=== PATIENT | female | born 1945 | race Caucasian/White ===

== ENCOUNTER → 2016-11-26 | Outpatient (CLI) | payer MEDICARE ==
[~2016-11-26] MED LIST: ACETAMINOPHEN PO; ASPIRIN81 M2 PO; ATENOLOL25 MG; ATENOLOL50 MG PO; FUROSEMIDE40 MG PO; HYDROCHLOROTHIA25 MG; IBUPROFEN800 MG; ISOSORBIDE DINI30 MG PO; LIPITOR20 MG PO; LOSARTAN POTAS100 MG PO; MIRAPEX ER1.5 MG; MULTI VITAMIN1 EACH PO; MULTI-DAY VITAM1 TAB; NEURONTIN300 MG PO; PRAVACHOL20 MG; SYNTHROID0.1 MG; SYNTHROID125 PO; TRAMADOL HCL50 M2 PO; VITAMIN D1000 UNI2 PO; VITAMIN D1000 UNIT; [UNRECOGNIZED DRUG - MIXTURE]
--- NOTE | ~2016-11-26 | BD1 ---
[facility] A Service of [facility] & [facility] RADIOLOGY TEXT RESULTS PATIENT: JESE LUNA LOCATION: [facility] : [birth year] UNIT #: [id number] AGE: [address]: Bernie Florence MD SEX: F ORDER DR: [id number] [facility] [address] [place], [place] [address] [id number] O MR#: [id number] Acc #: [id number] NAME: JESE LUNA : 1945 SEX: F STUDY DATE/TIME: 11/26/2016 11:28 UNIT: [facility] ROOM: STUDY DESCRIPTION: BD Dexa Bone Dens 1+ Site Attending Physician: Bernie Florence M.D. Ordering Physician: Bernie Florence M.D. Primary Care Physician: Bernie Florence M.D. MEDICAL IMAGING REPORT This report is preliminary unless electronic signature is present EXAM DXA scan 11/26/2016 HISTORY Status post menopause with no hormone replacement therapy. Osteopenia. Hysterectomy at age 51 with removal of both ovaries. Arthritis. Hypertension with blood pressure medication. Thyroid medication levothyroxine use. FINDINGS Bone mineral density in the lumbar spine from L1-L4 was 1.084 g/cm2 which is 0.3 standard deviations above the mean when compared to the young adult reference population which is within the range of normal. This is 2.5 standard deviations above the mean when compared to the age-matched population. Compared with 05/19/2012 there has been a decrease in bone mineral density in the lumbar spine of 12.2%. Bone mineral density in the left femoral neck was 0.702 g/cm2 which is 1.3 standard deviations below the mean when compared to the young adult reference population which is characteristic of osteopenia. This is 0.5 standard deviations above the mean when compared to the age-matched population. Compared with 05/19/2012 there has been a decrease in bone mineral density in the left hip of 14%. IMPRESSION Bone mineral density in the lumbar spine within the range of normal and within the left hip characteristic of osteopenia. Compared with 05/19/2012 there has been a decrease in bone mineral density in the lumbar spine and the left hip. Dictated by... Hansel Case M.D. THIS IS AN ELECTRONICALLY VERIFIED REPORT [facility] A Service of [facility] RADIOLOGY TEXT RESULTS PATIENT: JESE LUNA LOCATION: [facility] : [birth year] UNIT #: [id number] AGE: [address]: Bernie Florence MD SEX: F ORDER DR: Hansel Case M.D. at 11/27/2016 8:29 AM SEDRICK/usha TD: 11/26/2016 13:08 JOB #: [id number] MEDICAL IMAGING REPORT Page 1 of 1 COPY
== END | disposition home or self-care (01) ==
LOC: CWCC 11:10
DX: M81.0 Age-related osteoporosis without current pathological fracture (principal)
CPT/HCPCS: 77080